=== PATIENT | female | born 1955 | race Caucasian/White ===

== ENCOUNTER 2018-04-16 15:23 | Emergency (ER) | payer BC ==
[2018-04-16 16:15] VITALS: BP 143/84
--- NOTE | 2018-04-16 16:53 | UC ---
Yasmin Velasquez Emily, scribed for Thompson Bowden MD on 04/16/18 at 1628 . Back Pain HPI - HPI Summary HPI Summary: This patient is a 62 year old F presenting to urgent care with a chief complaint of lower back pain that began 04/11/2018. The patient rates the pain 2/ 10 in severity. Symptoms aggravated by nothing. Symptoms alleviated by nothing. Patient reports tingling and decreased strength. Pt reports seeing a neurosurgeon recently for these symptoms. Pt reports that she has a herniated disc and has chronic pain associated to it. Pt reports that she is waiting for insurance to approve a cortisone shot. - History of Current Complaint Chief Complaint: UCBackPain Stated Complaint: BACK PAIN, NEEDS REFILL Time Seen by Provider: 04/16/18 16:20 Hx Obtained From: Patient ?: No Onset/Duration: Sudden Onset, Lasting Days, Still Present Timing: Constant Severity Initially: Mild Severity Currently: Mild Pain Intensity: 2 Pain Scale Used: 0-10 Numeric Aggravating Factor(s): Nothing Alleviating Factor(s): Nothing Associated Signs And Symptoms: Positive: Other - Positive tingling and decreased strength Related History: Previous Back Injury - Allergies/Home Medications Allergies/Adverse Reactions: Allergies Allergy/AdvReac Type Severity Reaction Status Date / Time prochlorperazine Allergy throat Verified 04/11/18 08:21 [From Compazine] swelling verapamil Allergy throat Verified 04/11/18 08:21 swelling PMH/Surg Hx/FS Hx/Imm Hx Previously Healthy: No Neurological History: Migraine Psychological History: Anxiety - Surgical History Surgical History: Yes Surgery Procedure, Year, and Place: 2 C SECTIONS - Family History Known Family History: Positive: Other - Breast CA - Social History Occupation: Employed Full-time Lives: With Family Alcohol Use: Occasionally Substance Use Type: Marijuana Smoking Status (MU): Never Smoked Tobacco Review of Systems Musculoskeletal: Other: - Positive back pain and decreased strength Neurological: Other - Positive tingling Is Patient Immunocompromised?: Yes All Other Systems Reviewed And Are Negative: Yes Physical Exam - Summary Physical Exam Summary: General: well-appearing, no pain distress Skin: warm, color reflects adequate perfusion, dry Head: normal Eyes: EOMI, CALIN ENT: normal Neck: supple, nontender Respiratory: CTA, breath sounds present Cardiovascular: RRR Abdomen: soft, nontender Bowel: present Musculoskeletal: Tender to the left lateral lower back mild tenderness to palpation. Patellar reflexes are 1+ on the left and 2+ on the right. On the exam sensation and strength is equal on both sides. Neurological: sensory/motor intact, A&O x3 Psychological: affect/mood appropriate Triage Information Reviewed: Yes Vital Signs: Initial Vital Signs Temp 98.6 F 04/16/18 16:10 Pulse 105 04/16/18 16:10 Resp 16 04/16/18 16:10 BP 143/84 04/16/18 16:10 Pulse Ox 100 04/16/18 16:10 Vital Signs Reviewed: Yes Back Pain Course/Dx - Course Course Of Treatment: PATIENT HAS SEEN NEUROSURGERY (ON 04/14/18) FOR THIS CONDITION. F/U PMD/NEUROSURGERY; RECHECK SOONER IF WORSE. - Differential Dx/Diagnosis Provider Diagnoses: LOW BACK PAIN. LEFT SIDED LUMBAR RADICULOPATHY Discharge - Sign-Out/Discharge Documenting (check all that apply): Discharge/Admit/Transfer - Discharge Plan Condition: Stable Disposition: HOME Prescriptions: methylPREDNISolone [Medrol Dosepak 4 MG*] 4 mg PO .SEE LACI INSTRUCTION #1 laci Patient Education Materials: Low Back Strain (ED), Lumbar Radiculopathy (ED) Referrals: Dean Soler MD [Primary Care Provider] - Irasema Kemp MD [Medical Doctor] - Additional Instructions: FOLLOW UP WITH YOUR DOCTOR. GET RECHECKED FOR ANY WORSENING OF YOUR CONDITION; WEAKNESS, NUMBNESS, DIFFICULTY CONTROLLING BOWEL OR BLADDER OR QUESTIONS OR CONCERNS. - Billing Disposition and Condition Condition: STABLE Disposition: HOME The documentation as recorded by the Yasmin oro Emily accurately reflects the service I personally performed and the decisions made by me, Thompson Bowden MD.
== END 2018-04-16 16:35 | disposition home or self-care (01) ==
LOC: UCEAST 15:23
DX: M54.5 Low back pain (principal); M54.16 Radiculopathy, lumbar region; G43.909 Migraine, unspecified, not intractable, without status migrainosus; F41.9 Anxiety disorder, unspecified; Z88.8 Allergy status to other drugs, medicaments and biological substances
CPT/HCPCS: 99201; G0463